=== PATIENT | female | born 1950 | race Caucasian/White ===

== ENCOUNTER 2019-05-29 09:23 | Outpatient (CLI) | payer MEDICARE, OTHER ==
[~2019-05-29] VITALS: Ht 162.6 cm; Wt 90.7 kg
[2019-05-29] MEDS ORDERED: IOHEXOL-350 100 ML VIAL IV ONE (10:09)
[2019-05-29] MEDS ORDERED: IV NS 0.9% 250 ML IV ONE (10:09)
[2019-05-29] MEDS ORDERED: CT SWABBABLE VALVE TRANS SET 1 EA INFUS.SET MC ONE (10:09)
[2019-05-29] MEDS ORDERED: METOPROLOL TARTRATE INJ 5 MG/5 ML AMPUL ONE (10:52)
[2019-05-29] MEDS ORDERED: NITROGLYCERIN 0.4 MG/TAB BOTTLE SL ONE (11:00)
[2019-05-29] MEDS ORDERED: METOPROLOL TARTRATE INJ 5 MG/5 ML AMPUL IVP ONE (11:00)
[2019-05-29] MEDS: METOPROLOL TARTRATE INJ 5 MG/5 ML AMPUL IVP PRN ×2 (11:08→11:13)
[2019-05-29 11:40] VITALS: BP 120/80
--- NOTE | 2019-05-29 11:40 | NUR ---
received pt. from cat scanning,hep lock in place.no complaints offered.vs taken and stable.
[2019-05-29 13:30] VITALS: BP 117/74
--- NOTE | 2019-05-29 13:30 | NUR ---
vs taken.up to bathroom and voided,no complaints.friend and transport at bedside. pt. drinking water,but refusing lunch tray.
--- NOTE | 2019-05-29 14:00 | NUR ---
given dc instructions,hep lock removed,aware when to call md or report problems.taken via w/c to lobby accompanied by mosaic floor layer and friend.to f/up with dr. rivas.
== END 2019-05-29 23:59 | disposition home or self-care (01) ==
LOC: CT 09:23
PROVIDERS: ATTEND Internal Medicine Interventional Cardiology
DX: I77.810 Thoracic aortic ectasia (principal); K75.3 Granulomatous hepatitis, not elsewhere classified; M47.814 Spondylosis without myelopathy or radiculopathy, thoracic region
CPT/HCPCS: 75574; J3490; J7050; Q9967